=== PATIENT | male | born 1950 | race Caucasian/White ===

== ENCOUNTER 2020-05-22 06:37 | Emergency (ER) | payer OTHER ==
[2020-05-22] MEDS ORDERED: PROTONIX20 M1 PO (06:51)
[2020-05-22 07:46] LABS: BASO # 0.1 (0.02-0.10); EOS # 0.2 (0.04-0.40); HEMATOCRIT 46.4 % (42.0-52.0); HEMOGLOBIN 15.7 g/dL (13.5-18.0); MEAN CELL VOLUME 87 fl (78-100); MEAN CORPUSCULAR HEMOGLOBIN 29 pg (27-31); MEAN CORPUSCULAR HGB CONC 34 g/dL (33-37); MEAN PLATELET VOLUME 9.5 fl (7.4-10.4); MONO # 0.4 (0.20-0.80); NEU # 3.5 (1.40-6.50); PLATELET COUNT 229 K/mm3 (130-400); RED BLOOD COUNT 5.34 M/mm3 (4.20-5.60); RED CELL DISTRIBUTION WIDTH 13.5 % (11.5-14.5); WHITE BLOOD COUNT 5.2 K/mm3 (4.8-10.8)
[2020-05-22 07:51] LABS: URINE APPEARANCE CLEAR; URINE BILIRUBIN NEGATIVE (NEGATIVE); URINE BLOOD NEGATIVE (NEGATIVE); URINE COLOR YELLOW; URINE GLUCOSE NEGATIVE (NEGATIVE); URINE KETONE NEGATIVE (NEGATIVE); URINE LEUKOCYTE ESTERASE NEGATIVE (NEGATIVE); URINE MUCUS PRESENT (NOT PRESENT); URINE NITRATE NEGATIVE (NEGATIVE); URINE PROTEIN(semi-quant) NEGATIVE (NEGATIVE); URINE UROBILINOGEN NORMAL (NORMAL); URINE WBC 0-1 /hpf (0-3)
[2020-05-22 07:57] LABS: ALBUMIN 4.3 g/dL (3.4-4.8); POTASSIUM 4.2 mmol/L (3.5-5.1)
[2020-05-22 07:59] LABS: TOTAL PROTEIN 6.2 g/dL (6.2-8.1)
[2020-05-22 08:01] LABS: TOTAL BILIRUBIN 0.9 mg/dL (0.2-1.2)
[2020-05-22 08:56] VITALS: BP 143/94
== END 2020-05-22 08:54 | disposition home or self-care (01) ==
LOC: ED 06:37
PROVIDERS: Nurse Practitioner
DX: N40.1 Benign prostatic hyperplasia with lower urinary tract symptoms (principal); R33.8 Other retention of urine
CPT/HCPCS: A4340

== ENCOUNTER 2020-05-25 15:45 | Emergency (ER) | payer OTHER ==
[~2020-05-25 15:45] MED LIST: PROTONIX20 M1 PO
[2020-05-25 17:55] VITALS: BP 156/96
[2020-05-25] MEDS ORDERED: LEVSIN-SL0.125 MG SL (18:47)
[2020-05-26] MEDS ORDERED: CIPRO 500MG TA500 MG PO (08:44)
== END 2020-05-25 17:54 | disposition home or self-care (01) ==
LOC: ED 15:45
DX: T83.098A Other mechanical complication of other urinary catheter, initial encounter (principal); R33.9 Retention of urine, unspecified; R31.9 Hematuria, unspecified

== ENCOUNTER 2020-05-26 06:00 | Emergency (ER) | payer OTHER ==
[~2020-05-26] VITALS: Ht 193 cm; Wt 121.5 kg
[~2020-05-26 06:00] MED LIST changes: +LEVSIN-SL0.125 MG SL
[2020-05-26 08:01] LABS: PH-URINE 6.5 (5.0 - 8.0); URINE APPEARANCE CLOUDY; URINE BILIRUBIN NEGATIVE (NEGATIVE); URINE BLOOD 250 ery/uL (NEGATIVE); URINE COLOR PINK; URINE GLUCOSE NEGATIVE (NEGATIVE); URINE KETONE NEGATIVE (NEGATIVE); URINE LEUKOCYTE ESTERASE 2+ (NEGATIVE); URINE MUCUS PRESENT (NOT PRESENT); URINE NITRATE POSITIVE (NEGATIVE); URINE PROTEIN(semi-quant) 3+ mg/dL (NEGATIVE); URINE UROBILINOGEN NORMAL (NORMAL); URINE WBC >50 /hpf (0-3)
[2020-05-26] MEDS ORDERED: CIPRO 500MG TA500 MG PO (08:44)
[2020-05-26 08:56] VITALS: BP 126/79
== END 2020-05-26 09:15 | disposition home or self-care (01) ==
LOC: ED 06:00
PROVIDERS: Nurse Practitioner
DX: N39.0 Urinary tract infection, site not specified (principal); N40.1 Benign prostatic hyperplasia with lower urinary tract symptoms; T83.098A Other mechanical complication of other urinary catheter, initial encounter; N32.89 Other specified disorders of bladder
CPT/HCPCS: J0696

== ENCOUNTER 2021-05-24 13:05 | Emergency (ER) | payer OTHER ==
[~2021-05-24 13:05] MED LIST changes: +CIPRO 500MG TA500 MG PO
[2021-05-24] MEDS ORDERED: CORTISPORIN-TC10 M1 OT (14:01)
[2021-05-24 14:27] VITALS: BP 125/80
== END 2021-05-24 14:20 | disposition home or self-care (01) ==
LOC: ED 13:05
DX: H60.92 Unspecified otitis externa, left ear (principal)